=== PATIENT | male | born 1945 | race Caucasian/White ===

== ENCOUNTER 2017-06-17 16:03 | Emergency (ER) | payer OTHER ==
[~2017-06-17] VITALS: Ht 177.8 cm; Wt 78.3 kg
[2017-06-17 16:52] LABS: HEMATOCRIT 31.9 % (38.0-50.0); MCH 21.9 PG (29.0-34.0); MCV 70.6 FL (86-99); MEAN PLAT.VOLUME 11.1 uM^3 (9.0-12.4); PLATELET COUNT 362 K/uL (156-360); RBC DIS.WIDTH-CV 14.3 % (11.8-14.6); RBC DIS.WIDTH-SD 35.9 % (39-53); RED BLOOD COUNT 4.52 M/uL (4.00-5.50); WHITE BLOOD COUNT 8.9 K/uL (4.1-10.2)
[2017-06-17 16:53] LABS: CHLORIDE 106 mEq/L (99-109); POTASSIUM 4.1 mEq/L (3.7-5.4); SODIUM 138 mEq/L (136-147)
[2017-06-17 16:55] LABS: GLUCOSE 174 mg/dL (70-99)
[2017-06-17 16:57] LABS: ANION GAP 12 MEQ/L (2-14); TOTAL BILIRUBIN 0.4 mg/dL (0.0-1.0)
[2017-06-17 16:59] LABS: ALKALINE PHOSPHATASE 165 IU/L (3-129); GFR ESTIMATE (CALCULATED) > 59 mL/min/ (58.99-99999)
[2017-06-17 17:00] LABS: UREA NITROGEN (BUN) 15 mg/dL (9-23)
[2017-06-17 20:16] LABS: ADD MIUA? NO; BILIRUBIN NEGATIVE; BLOOD NEGATIVE; COLOR YELLOW ((YELLOW)); GLUCOSE (STRIP) NEGATIVE; KETONES NEGATIVE; LEUKOCYTES NEGATIVE; NITRITE NEGATIVE; PROTEIN (STRIP) NEGATIVE; UCUL ADDED? NO
[2017-06-17] MEDS ORDERED: ADVIL200 MG PO (20:43)
[2017-06-17] MEDS ORDERED: STOOL SOFTENER250 MG PO (21:01)
[2017-06-17] MEDS ORDERED: PERCOCET 5/31 TABLET PO (21:01)
[2017-06-17 21:30] VITALS: BP 133/68
[2017-06-21 13:15] LABS: POC NON-PRINT COM 1 ND
== END 2017-06-17 21:35 | disposition home or self-care (01) ==
LOC: EME 16:03
PROVIDERS: Nurse Practitioner Family
DX: K62.9 Disease of anus and rectum, unspecified (principal); C78.7 Secondary malignant neoplasm of liver and intrahepatic bile duct; C78.00 Secondary malignant neoplasm of unspecified lung; D64.9 Anemia, unspecified; R73.9 Hyperglycemia, unspecified; Z87.891 Personal history of nicotine dependence
CPT/HCPCS: 74177; 80053; 81003; 82272; 85027; 93005; 99281; 99285; J1200; J7030

== ENCOUNTER → 2017-06-24 | Outpatient (CLI) | payer OTHER ==
[~2017-06-24] MED LIST: ADVIL200 MG PO; MIRALAX17 GM PO; PERCOCET 5/31 TABLET PO; STOOL SOFTENER250 MG PO
== END | disposition home or self-care (01) ==
LOC: AMB 13:30
PROC: 0DJD8ZZ Inspection of Lower Intestinal Tract, Via Natural or Artificial Opening Endoscopic (ICD-10-PCS; principal; 2017-06-24)
DX: C20 Malignant neoplasm of rectum (principal); C78.7 Secondary malignant neoplasm of liver and intrahepatic bile duct; R19.7 Diarrhea, unspecified; Z87.891 Personal history of nicotine dependence; Z53.09 Procedure and treatment not carried out because of other contraindication; M19.90 Unspecified osteoarthritis, unspecified site

== ENCOUNTER 2017-06-28 09:00 | Day surgery (SDC) | payer OTHER ==
[~2017-06-28] VITALS: Ht 177.8 cm; Wt 78.3 kg
[2017-06-28 09:20] VITALS: BP 141/69
[2017-06-28 12:51] VITALS: BP 130/72
[2017-06-28 12:55] VITALS: BP 130/72
[2017-06-28 13:37] VITALS: BP 104/68
== END 2017-06-28 13:50 | disposition home or self-care (01) ==
LOC: SDC 09:00
DX: C20 Malignant neoplasm of rectum (principal); D12.8 Benign neoplasm of rectum; Z87.891 Personal history of nicotine dependence; R42 Dizziness and giddiness
CPT/HCPCS: 88305; C1751; J0131; J0690; J2250

== ENCOUNTER → 2017-07-01 | Outpatient (CLI) | payer OTHER ==
[~2017-07-01] MED LIST changes: +PROCHLORPERAZIN10 MG PO
[2017-07-01 08:28] LABS: INTER. NORMALIZED RATIO 1.2
[2017-07-01 08:30] LABS: PTT 25.3 SEC (25-37)
== END | disposition home or self-care (01) ==
LOC: OPR 07:33 → EDSTATUS 09:00 → OPR 09:00
PROVIDERS: Internal Medicine
PROC: 0FB03ZX Excision of Liver, Percutaneous Approach, Diagnostic (ICD-10-PCS; principal; 2017-07-01)
DX: C78.7 Secondary malignant neoplasm of liver and intrahepatic bile duct (principal); C20 Malignant neoplasm of rectum
CPT/HCPCS: 77012; 85610; 85730; 88305; 88341 TC; 88342 TC; J3010

== ENCOUNTER 2018-01-29 08:36 | Emergency (ER) | payer OTHER ==
[~2018-01-29] VITALS: Ht 170.2 cm; Wt 71.1 kg
[~2018-01-29 08:36] MED LIST changes: +OXYCODONE HCL10 MG PO
[2018-01-29 09:45] LABS: HEMATOCRIT 30.5 % (38.0-50.0); HEMOGLOBIN 9.8 G/DL (12.5-16.6); MCH 26.2 PG (29.0-34.0); MCHC 32.1 G/DL (30.0-36.0); MCV 81.6 FL (86-99); PLATELET COUNT 181 K/uL (156-360); RBC DIS.WIDTH-CV 17.2 % (11.8-14.6); RBC DIS.WIDTH-SD 51.3 % (39-53); RED BLOOD COUNT 3.74 M/uL (4.00-5.50); WHITE BLOOD COUNT 5.6 K/uL (4.1-10.2)
[2018-01-29 09:50] LABS: INTER. NORMALIZED RATIO 1.3
[2018-01-29 09:53] LABS: PTT 27.4 SEC (25-37)
[2018-01-29 10:16] LABS: ALBUMIN 2.9 G/DL (3.2-4.8); ALKALINE PHOSPHATASE 241 IU/L (3-129); ALT (GPT) 10 IU/L (3-49); AST (GOT) 22 IU/L (2-34); CHLORIDE 104 MEQ/L (99-109); CREATININE 0.5 MG/DL (0.6-1.3); GFR ESTIMATE (CALCULATED) > 59 mL/min/ (58.99-99999); GLUCOSE 114 mg/dL (70-99); POTASSIUM 4.2 MEQ/L (3.7-5.4); SODIUM 134 MEQ/L (136-147); TOTAL BILIRUBIN 0.5 MG/DL (0.0-1.0); TOTAL PROTEIN 6.3 G/DL (6.4-8.3); UREA NITROGEN (BUN) 9 mg/dL (9-23)
[2018-01-29 11:16] VITALS: BP 117/69
== END 2018-01-29 11:17 | disposition home or self-care (01) ==
LOC: EME 08:36
PROVIDERS: Emergency Medicine
DX: R19.7 Diarrhea, unspecified (principal); R60.0 Localized edema; Z87.891 Personal history of nicotine dependence; Z92.3 Personal history of irradiation; Z92.21 Personal history of antineoplastic chemotherapy; Z85.05 Personal history of malignant neoplasm of liver; Z85.118 Personal history of other malignant neoplasm of bronchus and lung; Z85.038 Personal history of other malignant neoplasm of large intestine; Z91.041 Radiographic dye allergy status
CPT/HCPCS: 80053; 85027; 85610; 85730; 93971; 99281; 99284

== ENCOUNTER 2018-02-21 20:30 | Emergency (ER) | payer OTHER ==
[~2018-02-21] VITALS: Ht 167.6 cm; Wt 67.6 kg
[2018-02-21 21:17] LABS: HEMATOCRIT 34.4 % (38.0-50.0); HEMOGLOBIN 11.4 G/DL (12.5-16.6); MCH 26.7 PG (29.0-34.0); MCHC 33.1 G/DL (30.0-36.0); MCV 80.6 FL (86-99); RBC DIS.WIDTH-CV 15.6 % (11.8-14.6); RBC DIS.WIDTH-SD 45.1 % (39-53); RED BLOOD COUNT 4.27 M/uL (4.00-5.50); WHITE BLOOD COUNT 6.2 K/uL (4.1-10.2)
[2018-02-21 21:24] LABS: PLATELET COUNT 265 K/uL (156-360)
[2018-02-21 21:29] LABS: CHLORIDE 99 mEq/L (99-109); POTASSIUM 4.4 mEq/L (3.7-5.4); SODIUM 131 mEq/L (136-147)
[2018-02-21 21:31] LABS: GLUCOSE 113 mg/dL (70-99)
[2018-02-21 21:35] LABS: CREATININE 0.7 mg/dL (0.6-1.3); GFR ESTIMATE (CALCULATED) > 59 mL/min/ (58.99-99999)
[2018-02-21 21:36] LABS: UREA NITROGEN (BUN) 10 mg/dL (9-23)
[2018-02-21 21:38] LABS: TROP-I INTERPRETATION NEGATIVE; TROPONIN-I < 0.01 ng/mL (0.0-0.30)
[2018-02-22 00:20] VITALS: BP 97/58
== END 2018-02-22 00:21 | disposition home or self-care (01) ==
LOC: EME 20:30
DX: R11.2 Nausea with vomiting, unspecified (principal); R19.7 Diarrhea, unspecified; E86.0 Dehydration; C18.9 Malignant neoplasm of colon, unspecified; Z85.05 Personal history of malignant neoplasm of liver; Z85.118 Personal history of other malignant neoplasm of bronchus and lung; Z92.21 Personal history of antineoplastic chemotherapy; Z92.3 Personal history of irradiation; Z87.891 Personal history of nicotine dependence
CPT/HCPCS: 71046; 80048; 84484; 85027; 93005; 99281; 99285; J2405; J7030